=== PATIENT | male | born 1970 | race Caucasian/White ===

== ENCOUNTER 2022-10-17 08:50 | Emergency (ER) | payer MEDICAID, SELFPAY ==
[2022-10-17 08:51] VITALS: BP 192/104; PULSE 61; RESP 16; TEMP 35.9; O2SAT 100; BMI 28.9
--- NOTE | 2022-10-17 08:58 | EKG12_ITS ---
Test Reason : NEURO Blood Pressure : / mmHG Vent. Rate : 052 BPM Atrial Rate : 052 BPM P-R Int : 162 ms QRS Dur : 084 ms QT Int : 436 ms P-R-T Axes : 038 044 051 degrees QTc Int : 405 ms Sinus bradycardia Otherwise normal ECG Confirmed by AKHIL CASTANEDA, ELENI ([id number]), web content editor FARIDA VIEYRA ([id number]) on 10/18/2022 8:17:46 AM Referred By: Confirmed By:ELENI LANDAVERDE MD
--- NOTE | 2022-10-17 09:01 | NURSING ---
NO OLD EKGS
--- NOTE | 2022-10-17 09:09 | EX.ED.DYSGE1 ---
HPI History of Present Illness Chief Complaint: Neuro S/Sx Informant: patient Onset/Context/Timing Onset: Days (3-4) Context: Gradual Onset Timing: Continuous Quality: Weakness Location: Left upper and left lower extremity Worsened by: In the morning Relieved by: Nothing Narrative Narrative: Patient presents with weakness in his left upper and lower extremity that has been constant for the past 3 to 4 days. Patient states that the maximum waning but it is relatively constant. Patient states he noticed that his blood pressure has been high. Patient is on lisinopril for that. Patient states he has been taking it regularly. Patient states his left arm and leg feel somewhat weak. Patient also admits to a headache. Patient states that he was hit in the back of his head approximately 1 month ago by a tree limb while he was working. Patient states his headache is over the this area. Patient also complains of neck pain since the injury. [facility] Medical History (Updated 10/17/22 @ 10:[address] Howard Arrington DO) Hypertension Allergy/AdvReac Type Severity Reaction Status Date / Time No Known Allergies Allergy Verified 10/17/22 08:51 Surgical History no surgical history no surgical history Social History Smoking Status: Never smoker ROS ROS ED Constitutional Constitutional ED: Denies chills or fever(s) Eyes Eyes: Denies blurry vision or change in vision ENT ENT ED: Denies rhinorrhea or sore throat Cardiovascular Cardiovascular: Denies chest pain or palpitations Respiratory/Chest Respiratory/Chest: Denies cough or dyspnea Gastrointestinal Gastrointestinal: Denies nausea or vomiting Genitourinary Genitourinary ED: Denies dysuria or hematuria Musculoskeletal Musculoskeletal: Reports neck pain; Denies back pain Integumentary Denies abscess or rash Neurologic Neurologic: Reports headache(s); Denies weakness Allergic/Immunologic Allergic/Immunologic ED: Denies mouth swelling or urticaria EXAM Physical Exam Const Vital Signs: 10/17/22 08:51 10/17/22 08:58 Temperature 96.7 F L Temperature Source Temporal Pulse Rate 61 Respiratory Rate 16 Blood Pressure 192/104 H Blood Pressure Mean 133 Pulse Ox 100 Oxygen Delivery Method Room Air Room Air Positive well nourished and well developed General Appearance ED: well developed and NAD HEENT Reports moist mucous membranes Neck supple and no JVD Resp normal respiratory effort and clear to auscultation bilaterally Cardio regular rate, regular rhythm and no murmurs GI normal to inspection, nondistended, normoactive bowel sounds and non-tender Palpation: soft Extremity normal to inspection General Extremety ED: Negative for edema or tenderness General Extremity: Negative for edema Neuro oriented x3, CN's II-XII intact bilaterally and no sensory deficits noted Neuro Narrative: There is slight pronator drift in the left upper extremity. The left upper extremity began to fall slightly before the count of 10. The left lower extremity also began to fall slightly before the count of 5. Sensorium / Orientation: alert Motor Exam: strength 5/5 throughout Psych mental status grossly normal Skin no rashes or lesions noted MDM MDM MDM Narrative Medical decision making narrative: Differential diagnosis includes stroke, intracranial bleeding, hypertensive emergency, cardiac dysrhythmia, and cardiac ischemia. CT scan of the brain will be obtained to assess for intracranial bleeding and stroke. CBC will be obtained to assess for leukocytosis and anemia. Basic metabolic profile will be obtained to assess for electrolyte abnormality and renal function. PT with INR and PTT will be obtained to assess for coagulopathy. Chest x-ray will be obtained to assess for pneumonia and cardiomegaly. Lab Data Attestation: I reviewed the patient's lab results. Lab results narrative: CBC was reviewed and was within normal limits. Basic metabolic profile was reviewed and was within normal limits. High-sensitivity troponin was reviewed and was normal at 6. Labs: Laboratory Results - last 24 hr 10/17/22 10/17/22 10/17/22 09:01 09:05 09:05 WBC 7.0 RBC 4.87 Hgb 15.4 Hct 46.0 MCV 94.5 H MCH 31.6 MCHC 33.5 RDW Std Deviation 44.1 H RDW Coeff of Lulu 12.7 Plt Count 194 MPV 10.0 Immature Gran % (Auto) 0.300 Neut % (Auto) 59.1 Lymph % (Auto) 25.0 [place] % (Auto) 11.1 H Eos % (Auto) 3.9 Baso % (Auto) 0.6 Absolute Neuts (auto) 4.2 Absolute Lymphs (auto) 1.75 Nucleated RBC % 0 Sodium 140 Potassium 4.2 Chloride 110 H Carbon Dioxide 26.0 Anion Gap 4 L BUN 22 H Creatinine 1.16 Estim Creat Clear Calc 83.23 Est GFR (MDRD) Af Amer 85 Est GFR (MDRD) Non-Af 70 BUN/Creatinine Ratio 19.0 Glucose 115 H Calcium 9.2 Troponin I High Sens POC Glucose 111 H 10/17/22 09:05 WBC RBC Hgb Hct MCV MCH MCHC RDW Std Deviation RDW Coeff of [place]ulu Plt Count MPV Immature Gran % (Auto) Neut % (Auto) Lymph % (Auto) [place] % (Auto) Eos % (Auto) Baso % (Auto) Absolute Neuts (auto) Absolute Lymphs (auto) Nucleated RBC % Sodium Potassium Chloride Carbon Dioxide Anion Gap BUN Creatinine Estim Creat Clear Calc Est GFR (MDRD) Af Amer Est GFR (MDRD) Non-Af BUN/Creatinine Ratio Glucose Calcium Troponin I High Sens 6 POC Glucose Radiography Diagnostic Testing: Clinical Impression(s) from Imaging Studies Chest X-Ray 10/17/22 09:10 IMPRESSION: Normal x-ray examination of the chest. Electronically Signed: Elie Ng MD at 9:29 EDT , Portable 1 view chest x-ray was obtained. On my independent interpretation, lung mina are clear. There is normal cardiac silhouette. Bony thorax is normal. There is no acute process noted. Radiologist also interpreted the x-ray and agrees. CT scan of the brain was obtained. There is a subacute subdural hematoma on the right with compression of the right lateral ventricles and mild midline shift. This was interpreted by the radiologist and was also independently reviewed by myself. EKG Initial EKG: Attestation: I personally reviewed and interpreted this EKG as follows: Interpretation: No Acute Injury Pattern and Sinus Bradycardia (52) Comments: EKG was obtained. On my independent interpretation, it showed a sinus bradycardia with a rate of 52. HI interval, QRS interval, and QTc intervals were all normal. [place] was normal. There are no acute ST or T wave changes. Prior EKG tracings: not available for review Prior: No Prior Treatment and Re-Evaluation :: Patient was given a dose of labetalol here. Patient was advised of his findings. Patient was advised of the need for transfer to trauma center for neurosurgical capabilities. Patient requested to go to [facility] since they are affiliated with [facility]. Case was discussed with Dr. Walton in the emergency department there. He accepted the patient to be transferred there. The transfer center at [facility] will send their critical care transfer team. Patient understood and was agreeable with the plan. All questions were answered. Critical Care Time Critical Care Time: Yes Critical care time (excluding procedures): 30-74 minutes (36), Including time spent:, Discussing w/Patient &/or Family/Purler, Discussing w/Consultants, Arranging Admission or Transfer and Performing Direct Patient Care at Bedside Discharge Plan Triage Chief Complaint: Neuro S/Sx ED Provider: Howard Arrington Dx/Rx/DC Orders Clinical Impression: Acute subdural hematoma, Hypertension Primary Care Provider: Matias Pinto Referrals: Matias Pinto DO [Primary Care Provider] - Disposition Disposition: Acute Care Hospital Discharge Location: [facility]
--- NOTE | 2022-10-17 09:10 | RAD_ITS ---
STUDY: X-RAY CHEST REASON FOR EXAM: Male, 52 years old. Stroke TECHNIQUE: Single AP portable view of the chest. COMPARISON: None. FINDINGS: EKG electrodes are seen. The lungs are clear and expanded. There is no demonstrated pleural abnormality. Normal size heart. Normal mediastinum and everette. Normal visualized pulmonary arteries. Normal visualized aortic arch and descending thoracic aorta. Normal visualized thoracic spine. Normal visualized ribs, clavicles, and shoulders. There is no demonstrated abnormality of the visualized soft tissue structures of the upper abdomen. RAD/Chest 1 View (Portable) IMPRESSION: Normal x-ray examination of the chest. Electronically Signed: Elie Ng MD at 9:29 EDT ,
[2022-10-17] MEDS: 0.9% Normal Saline 1,000 ML 50 ML IV (09:12)
[2022-10-17 09:14] LABS: Absolute Lymphocyte Count 1.75 X10^3/uL (0.83-4.51); Absolute Neutrophil Count 4.2 X10^3/uL (2.0-7.7); Basophil# 0.04 X10^3/uL; Basophil% 0.6 % (0-1); Eosinophil# 0.27 X10^3/uL; Eosinophils% 3.9 % (0-5); Hemoglobin 15.4 g/dL (13.0-16.5); Lymphocyte # 1.75 X10^3/ul (0.83-4.51); Mean Corp Hgb Conc 33.5 g/dL (32-36); Mean Corpuscular Hgb 31.6 pg (27.0-32.0); Mean Corpuscular Volume 94.5 fL (80-94); Monocyte# 0.78 X10^3/uL; Monocyte% 11.1 % (0-10); NRBC Flagged by Analyzer 0 % (0-5); Neutrophil # 4.15 X10^3/uL (2.7-7.7); Neutrophil % 59.1 % (47-70); Platelet Count 194 K/mm3 (150-450); RBC Distribution Width CV 12.7 % (11.6-14.6); RBC Distribution Width SD 44.1 fl (35.1-43.9); Red Blood Count 4.87 M/mm3 (4.6-6.2)
[2022-10-17 09:15] VITALS: BMI 29.5
--- NOTE | 2022-10-17 09:16 | CT_ITS ---
STUDY: CT BRAIN WITHOUT CONTRAST REASON FOR EXAM: Male, 52 years old. Left arm and left leg weakness and headaches. History of recent head trauma. RADIATION DOSAGE (If Supplied By Facility): CTDIvol = ( 44.99 ) mGy, DLP = ( 796.11 ) mGycm TECHNIQUE: Transaxial CT imaging of the brain was performed without administration of intravenous contrast material. Individualized dose optimization techniques were used for this CT. COMPARISON: No relevant priors. FINDINGS: Normal soft tissue structures. Normal calvarium. There is a large right acute on subacute subdural hematoma overlying the right frontal parietal and occipital lobes. There is shift of the midline from right to left measuring 8.1 mm. There is evidence of compression of the right lateral ventricle. Temporal Normal basal ganglia and thalami. Normal brainstem. Normal cerebellum. Normal visualized paranasal sinuses. CT/Brain/Head without Contrast IMPRESSION: Large right acute on subacute subdural hematoma overlying the right frontoparietal and occipital lobes with shift of the midline from right to left of 8.1 mm. N.B. : The above Results were Read Back by Elie Ng MD to Howard Arrington DO, and understanding confirmed on 10/17/2022 10:10:08 (ET). Electronically Signed: Elie Ng MD at 10:11 EDT ,
[2022-10-17 09:21] LABS: Bedside Glucose 111 mg/dL (74-106)
[2022-10-17 09:26] LABS: Anion Gap 4 (5-15); BUN 22 mg/dL (7-18); Calcium,Total 9.2 mg/dL (8.5-10.1); Chloride 110 mmol/L (98-107); Creatinine, Serum 1.16 mg/dL (0.70-1.30); EST Glomerular Filtration Rate 70 mL/min (>60); Est Glom Filt Rate - Afr Amer 85 mL/min (>60); Estimated Creatinine Clearance 83.23 ml/min; Glucose 115 mg/dL (74-106); Potassium 4.2 mmol/L (3.5-5.1); Sodium Level 140 mmol/L (136-145)
[2022-10-17 09:42] LABS: Troponin-I HS 6 pg/mL (3.0-78.0)
[2022-10-17] MEDS: Labetalol (Prefilled) 20 MG/4 ML IV (09:55)
[2022-10-17 09:59] VITALS: BP 185/108; PULSE 60; RESP 15; O2SAT 99
[2022-10-17 10:01] VITALS: BP 171/97; PULSE 60; RESP 14; O2SAT 97
--- NOTE | 2022-10-17 10:07 | NURSING ---
[facility] ACCEPTING DR CABELLO NURSE TO NURSE [id number] [facility]SP[facility] HERE IN 45 MIN
[2022-10-17 10:43] LABS: International Normalized Ratio 1.1; Partial Thromboplast Time 25.8 Seconds (24.1-36.2); Prothrombin Time (Protime)PT. 13.8 SECONDS (11.7-14.9)
[2022-10-17 10:50] VITALS: BP 186/88; PULSE 58; RESP 19; O2SAT 99
[2022-10-17 10:54] VITALS: BP 186/88; PULSE 55; RESP 18; O2SAT 98
== END 2022-10-17 11:00 | disposition short-term general hospital (02) ==
PROVIDERS: Emergency Provider Emergency Medicine; PCP Student in an Organized Health Care Education/Training Program; Visit Provider Emergency Medicine
DX: S06.5XAA Traumatic subdural hemorrhage with loss of consciousness status unknown, initial encounter (principal); I10 Essential (primary) hypertension; X58.XXXA Exposure to other specified factors, initial encounter
CPT/HCPCS: 70450; 71045; 80048; 82962; 84484; 85025; 85610; 85730; 93005; 96374; 99285; J7030; A4216